=== PATIENT | male | born 1940 | race Caucasian/White ===

== ENCOUNTER 2019-12-14 07:39 | Outpatient (CLI) | payer MEDICARE, SELFPAY ==
--- NOTE | ~2019-12-14 | NM_ITS ---
EXAMINATION: NM vinayak stress w perfusion DATE: 12/14/2019 10:26 INDICATION: Other chest pain. TECHNIQUE: Rest images were obtained following intravenous administration of 10.6 mCi Tc99m tetrofosm in (Myoview). The patient was infused intravenously with Lexiscan (regadenoson). Then, 31.6 mCi Tc99m tetrofosmin (Myoview) was administered intravenously, and stress images were obtained. Data was micah nstructed into short axis and horizontal and vertical long axis SPECT images. Gated SPECT images were also obtained. COMPARISON: Myocardial perfusion imaging 03/04/2019 FINDINGS: There is no definite reversible or fixed perfusion abnormality to suggest ischemia or infar ction. There is no segmental wall motion abnormality. Left ventricular ejection fraction measures 6 5%. IMPRESSION: 1. No definite ischemia or infarct. 2. Normal left ventricular ejection fraction measuring 65%. Reviewed, dictated and finalized at location A. AND DRUG RESEARCH SCIENTIST
--- NOTE | 2019-12-14 07:47 | EST_ITS ---
Patient Info Name: Augusto Conley Age: 79 years : 1940 Gender: Male Ht: 68 in Wt: 200 lbs BSA: 2.11 m2 HR: 74 bpm BP: 181 / 84 mmHg Technical Quality: Good Exam Date: 12/14/2019 8:54 AM Exam Location: [facility] [place] Stress Patient Status: Outpatient Admit Date: 12/14/2019 Staff Ordering Physician: Nae Keys Attending Provider: Nae Keys Exercise Technologist: Sanchez Bustamante RDCS, RT Exercise Physician: Benito Salguero DO Exam Type: CA stress vinayak w NM Study Info A regadenoson stress test was performed. Summary 1. 1. Negative lexiscan stress test for ischemic ST changes by ECG criteria. 2. 2. Baseline hypertension. 3. 3. Nuclear scan to follow and will be reported separately. Please correlate with it. 4. 4. Patient informed of the above results. Protocol: Lexiscan Stress ECG Details Stage: REST Duration (min): 0 min : 11 sec HR (bpm): 79 SBP (mmHg): --- DBP (mmHg): --- Stage: REST Duration (min): 14 min : 29 sec HR (bpm): 73 SBP (mmHg): 181 DBP (mmHg): 84 Stage: STAGE 1 Duration (min): 1 min : 0 sec HR (bpm): 100 SBP (mmHg): 181 DBP (mmHg): 84 Stage: RECOVERY Duration (min): 1 min : 0 sec HR (bpm): 99 SBP (mmHg): 189 DBP (mmHg): 90 Stage: RECOVERY Duration (min): 2 min : 0 sec HR (bpm): 89 SBP (mmHg): 189 DBP (mmHg): 90 Stage: RECOVERY Duration (min): 3 min : 0 sec HR (bpm): 88 SBP (mmHg): 161 DBP (mmHg): 86 Stage: RECOVERY Duration (min): 3 min : 12 sec HR (bpm): 85 SBP (mmHg): 161 DBP (mmHg): 86 Rest HR: 73 bpm Peak HR: 106 bpm Rest Sys BP: 181 mmHg Peak Sys BP: 189 mmHg Max Pred HR: 139 bpm % Max Pred HR: 76 % Target HR: 118 bpm Max RPP: 20,034 bpm*mmHg Termination Reason: Completed protocol Cardiac Symptoms: Shortness of breath Total Time: 1 min : 0 sec Rest White BP: 84 mmHg Peak White BP: 90 mmHg Total Dose: 0.4 mg Resting ECG Sinus rhythm. Stress ECG No ST changes. Arrhythmias None. Report Signatures
== END 2019-12-14 07:40 | disposition home or self-care (01) ==
LOC: ANHCARD 07:41
PROVIDERS: PCP Internal Medicine; Visit Provider Nurse Practitioner
DX: R07.89 Other chest pain (principal)
CPT/HCPCS: 78452; 93017; A9502; J2785

== ENCOUNTER 2020-05-15 19:37 | Emergency (ER) | payer MEDICARE, SELFPAY ==
[2020-05-15] VITALS (12 sets, daily range): BP systolic 166–268; BP diastolic 87–108; PULSE 85–115; RESP 15–30; TEMP 36.4–37.2; O2SAT 94–100
--- NOTE | ~2020-05-15 | XR_ITS ---
EXAMINATION: XR shoulder LT min 2V INDICATION: Left shoulder dislocation TECHNIQUE: Three views of the left shoulder are obtained. COMPARISON: 10/13/2014 FINDINGS: There are changes of interval left total shoulder arthroplasty. There is acute anterior dis location of the humeral component relative to the glenoid. No fracture is identified. There is modera te to severe osteoarthritis of the acromioclavicular joint.. IMPRESSION: 1. 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 Reviewed, dictated and finalized at location A. IMPRESSION: 1. 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
--- NOTE | ~2020-05-15 | XR_ITS ---
EXAMINATION: XR shoulder LT min 2V INDICATION: Left shoulder post reduction TECHNIQUE: Two views of the left shoulder are obtained. COMPARISON: 2007 hours FINDINGS: There is persistent shoulder dislocation with the humeral component residing cranial to the glenoid component. No fracture is identified. IMPRESSION: 1. Persistent shoulder dislocation. Reviewed, dictated and finalized at location A.
--- NOTE | 2020-05-15 19:55 | ED.UPPEXIN ---
HPI - Extremity Injury (Upper) General Chief Complaint: Extremity Injury, Upper Stated Complaint: L shoulder pain Time Seen by Provider: 05/15/20 19:47 History of Present Illness HPI narrative: Patient presents with his for left shoulder pain. He dislocated it a half an hour prior to presentation. He tried to put it back in himself and was unable to. He has had surgery on it before. Last surgery was 2015. He describes the pain is 8 out of 10. He has not been sick in the last couple weeks. He does not smoke drink or do drugs. He was oxygen at home 2 L. complaint: injury to: left Onset (ago): minute(s) Other Extremity Injury: Left: shoulder Place: home Severity: severe Severity scale (1-10): 8 Relieving factors: none Exacerbating factors: movement of extremity Associated symptoms: denies other symptoms Related Data Home Medications Medication Instructions Recorded Confirmed cholecalciferol (vitamin D3) 25 1,000 unit PO DAILY 12/06/19 12/06/19 mcg (1,000 unit) tablet finasteride 5 mg tablet 5 mg PO DAILY 12/06/19 12/06/19 niacin 500 mg tablet 500 mg PO DAILY 12/06/19 12/06/19 omega-3 fatty acids 1,000 mg 1,000 mg PO DAILY 12/06/19 12/06/19 capsule aspirin 81 mg tablet,delayed 81 mg PO DAILY 04/23/20 release Allergies Allergy/AdvReac Type Severity Reaction Status Date / Time cefuroxime Allergy Unknown Unknown Verified 02/02/20 09:49 hydromorphone Allergy Unknown Unknown Verified 02/02/20 09:49 hydroxyprogesterone Allergy Unknown Unknown Verified 02/02/20 09:49 levofloxacin Allergy Unknown Rash Verified 02/02/20 09:49 lisinopril Allergy Unknown Unknown Verified 02/02/20 09:49 meperidine Allergy Unknown Unknown Verified 02/02/20 09:49 Review of Systems Review of Systems: Narrative: CONSTITUTIONAL: Denies fever, chills, or sweats. EYES: Denies visual changes, redness, or discharge. ENT: Denies rhinorrhea, congestion, sore throat, or otalgia. CARDIOVASCULAR: Denies chest pain, palpitations, or edema. RESPIRATORY: Denies cough or dyspnea. GASTROINTESTINAL: Denies abdominal pain, nausea, vomiting, or diarrhea. GENITOURINARY: Denies dysuria or hematuria. SKIN: Denies rash or itching. MUSCULOSKELETAL: Denies back pain, but has left shoulder pain. NEUROLOGIC: Denies headache, numbness, or weakness. PSYCHIATRIC: Denies anxiety or depression. All systems reviewed & are unremarkable except as noted in HPI and below PMFSH Past Medical History Medical History Chronic hypoxemic respiratory failure Chronic obstructive pulmonary disease Essential (primary) hypertension ILD (interstitial lung disease) Surgical History Surgical History History of cancer surgery History of foot surgery History of shoulder surgery History of surgery on arm Social History Social History Smoking packs per day: 5 Smoking cigarettes per day: 100.0 Years smoked: 56 Smoking pack-years: 280.00 Smoking status: Former smoker Tobacco type: cigarettes Second hand tobacco smoke exposure: No Smoking end date: 11/16/06 Alcohol intake: never Gender identity (if verbalized by the patient): Male Exam Narrative: Exam Narrative: GENERAL: Well-appearing, well-nourished, and in no acute distress. HEAD: Normocephalic, atraumatic. EYES: PERRLA and EOMI. ENT: Nares clear, no rhinorrhea or epistaxis. Mucous membranes moist. NECK: Supple. CHEST: Clear to auscultation. No respiratory distress. HEART: Regular rate and rhythm. No murmur heard. Normal peripheral pulses. ABDOMEN: Soft, nontender, nondistended, normal active bowel sounds. EXTREMITIES: No edema. Left shoulder with deformity, and well-healed scar. Range of motion severely limited. SKIN: Warm, dry, no rash. NEURO: No focal deficits. Alert and oriented x3. PSYCH: Normal mood and affect. Course Reevaluati
--- NOTE | 2020-05-15 20:32 | PC.NURSE ---
10 mg of etomidate given at this time. per ed lamar orders.
--- NOTE | 2020-05-15 20:35 | PC.NURSE ---
pt vomiting at this time. 4 mg of zofran ordered per edp
[2020-05-15] MEDS: ONDANSETRON INJ 4 MG/2 ML VIAL IV PUSH ×2 (20:41→22:08)
[2020-05-15] MEDS: ETOMIDATE 20 MG/10 ML AMPUL IV PUSH (20:41)
[2020-05-15] MEDS: MORPHINE SULFATE 2 MG/ML INJ IV PUSH (21:20)
[2020-05-15] MEDS: METOCLOPRAMIDE HCL INJ 10 MG/2 ML VIAL IV PUSH (21:20)
[2020-05-15 22:49] LABS: Glucose Point of Care 189 (65-105)
--- NOTE | 2020-05-23 06:42 | PC.NURSE ---
LATE ENTRY This note is being entered to document information to the patient's record. The following information was omitted on 05/15, 10 mg of etomidate given at 2020.
== END 2020-05-15 23:01 | disposition short-term general hospital (02) ==
PROVIDERS: Emergency Provider Emergency Medicine; PCP Internal Medicine
DX: S43.005A Unspecified dislocation of left shoulder joint, initial encounter (principal); R11.2 Nausea with vomiting, unspecified; Z87.891 Personal history of nicotine dependence; J44.9 Chronic obstructive pulmonary disease, unspecified; I10 Essential (primary) hypertension; X58.XXXA Exposure to other specified factors, initial encounter
CPT/HCPCS: 23650; 73030; 96374; 99285; J2270; J2405; J2765

== ENCOUNTER 2020-06-07 10:38 | Outpatient (CLI) | payer MEDICARE, SELFPAY ==
--- NOTE | ~2020-06-07 | US_ITS ---
EXAMINATION: US renal BI EXAM DATE: 06/07/2020 11:16 INDICATION: History chronic kidney disease. TECHNIQUE: Multiple grayscale and Doppler images of the kidneys were obtained (by a technologist who performed the scan) and subsequently reviewed. Comparison is made to prior examination from 06/18/2011. FINDINGS: Right kidney: There is normal contour and echogenicity. It measures 11.3 x 6.2 x 5.6 centimeters. Th ere is bilobulated cystic region superior pole right kidney, region measuring 4.7 x 2.8 x 4.4 cm. Thi s was present in 2010 and is likely a cyst. There is no hydronephrosis. Left kidney: There is normal contour and echogenicity. It measures 10.1 x 5.5 x 5.8 centimeters. Th ere are no focal renal lesions identified. There is no hydronephrosis. Bladder unremarkable. IMPRESSION: 1. Right renal lesion most likely cyst. Reviewed, dictated and finalized at location A.
== END 2020-06-07 10:39 | disposition home or self-care (01) ==
LOC: ANHIMG 10:39
PROVIDERS: PCP Internal Medicine; Visit Provider Internal Medicine Nephrology
DX: I12.9 Hypertensive chronic kidney disease with stage 1 through stage 4 chronic kidney disease, or unspecified chronic kidney disease (principal); N18.3 Chronic kidney disease, stage 3 (moderate); E11.29 Type 2 diabetes mellitus with other diabetic kidney complication; N28.1 Cyst of kidney, acquired
CPT/HCPCS: 76775

== ENCOUNTER 2020-10-04 16:50 | Emergency (ER) | payer MEDICARE, SELFPAY ==
[2020-10-04 17:01] VITALS: BP 184/100; PULSE 88; RESP 20; TEMP 36.9; O2SAT 97
--- NOTE | 2020-10-04 17:06 | ED.URI ---
HPI - URI/Sore Throat General Chief Complaint: Upper Respiratory Infection Stated Complaint: upper respiratory infection Source: patient Mode of arrival: ambulatory Limitations: no limitations History of Present Illness HPI Narrative: Patient is an 80-year-old male who presents with complaining of flulike symptoms x1 week. Patient reports receiving flu vaccine last month. He reports body aches, cough, congestion. Patient has multiple comorbidities and is on home O2. Patient reports a temp of 103 approximately 2 days ago. He denies known Covid exposure. He has been taking DayQuil and NyQuil daily with limited relief. MD elicited complaint: cough Related Data Home Medications Medication Instructions Recorded Confirmed cholecalciferol (vitamin D3) 25 1,000 unit PO DAILY 12/06/19 10/04/20 mcg (1,000 unit) tablet niacin 500 mg tablet 500 mg PO DAILY 12/06/19 10/04/20 omega-3 fatty acids 1,000 mg 1,000 mg PO DAILY 12/06/19 10/04/20 capsule aspirin 81 mg tablet,delayed 81 mg PO DAILY 04/23/20 10/04/20 release insulin syringe-needle U-100 1/2 #90 each 06/01/20 06/01/20 mL 31 gauge x 15/64 tramadol 50 mg tablet 50 mg PO DAILY PRN tablet 06/04/20 06/04/20 Allergies Allergy/AdvReac Type Severity Reaction Status Date / Time cefuroxime Allergy Unknown Unknown Verified 10/04/20 17:13 hydromorphone Allergy Unknown Unknown Verified 10/04/20 17:13 hydroxyprogesterone Allergy Unknown Unknown Verified 10/04/20 17:13 levofloxacin Allergy Unknown Rash Verified 10/04/20 17:13 lisinopril Allergy Unknown Unknown Verified 10/04/20 17:13 meperidine Allergy Unknown Unknown Verified 10/04/20 17:13 Review of Systems Review of Systems: Narrative: CONSTITUTIONAL: Reports intermittent fever. EYES: Denies visual changes, redness, or discharge. ENT: Denies rhinorrhea, sore throat, or otalgia. Congestion CARDIOVASCULAR: Denies chest pain, palpitations, or edema. RESPIRATORY: Reports cough and dyspnea. On home O2 GASTROINTESTINAL: Denies abdominal pain, nausea, vomiting, or diarrhea. GENITOURINARY: Denies dysuria or hematuria. SKIN: Denies rash or itching. MUSCULOSKELETAL: Denies back pain, joint pain, reports generalized myalgias NEUROLOGIC: Denies headache, numbness, dizziness, or weakness. PSYCHIATRIC: Denies anxiety or depression. [facility] Past Medical History Medical History (Updated 10/04/20 @ 17:42 by MORGAN Harvey) Chronic hypoxemic respiratory failure Chronic obstructive pulmonary disease Essential (primary) hypertension ILD (interstitial lung disease) Surgical History Surgical History History of cancer surgery History of foot surgery History of shoulder surgery History of surgery on arm Family History Family History Sibling Family history of arthritis Family history of Alzheimer's disease Father Cerebrovascular accident Social History Social History Smoking packs per day: 5 Smoking cigarettes per day: 100.0 Years smoked: 56 Smoking pack-years: 280.00 Smoking status: Former smoker Tobacco type: cigarettes Second hand tobacco smoke exposure: No Smoking end date: 11/16/06 Alcohol intake: never Gender identity (if verbalized by the patient): Male Exam Narrative: Exam Narrative: GENERAL: Well-appearing, well-nourished, and in no acute distress. HEAD: Normocephalic, atraumatic. EYES: No redness or drainage. ENT: Mucous membranes pink and moist. CHEST: No respiratory distress. Lung sounds clear but slightly diminished bilaterally. HEART: Regular rate and rhythm. EXTREMITIES: Normal range of motion. SKIN: Warm, dry, no rash. NEURO: No focal deficits. Alert and oriented x3. Gait steady. PSYCH: Normal affect. No signs of depression or anxiety. Course Vital Signs Vital signs: Vital Signs Temp
== END 2020-10-04 18:00 | disposition home or self-care (01) ==
PROVIDERS: Emergency Provider Nurse Practitioner; PCP Internal Medicine
DX: J06.9 Acute upper respiratory infection, unspecified (principal); U07.1 COVID-19; F17.210 Nicotine dependence, cigarettes, uncomplicated; J44.9 Chronic obstructive pulmonary disease, unspecified; I10 Essential (primary) hypertension
CPT/HCPCS: 87804; 99202; G0463

== ENCOUNTER 2020-10-05 06:54 | Outpatient (NON) | payer MEDICARE, SELFPAY ==
[2020-10-06 06:47] LABS: SARS-CoV-2 RNA PCR Positive
== END 2020-10-05 06:55 ==
PROVIDERS: PCP Internal Medicine; Visit Provider Nurse Practitioner
DX: U07.1 COVID-19 (principal)
CPT/HCPCS: 87635; C9803; U0003

== ENCOUNTER 2021-01-23 08:32 | Outpatient (CLI) | payer MEDICARE, SELFPAY | END 2021-01-23 08:33 | disposition home or self-care (01) | LOC: ANHCOVIDVC 08:32 | PROVIDERS: PCP Internal Medicine | DX: Z23 Encounter for immunization (principal) | CPT/HCPCS: 0001A; 91300 ==

== ENCOUNTER 2021-02-13 08:23 | Outpatient (CLI) | payer MEDICARE, SELFPAY | END 2021-02-13 08:24 | LOC: ANHCOVIDVC 08:23 | PROVIDERS: PCP Internal Medicine | DX: Z23 Encounter for immunization (principal) | CPT/HCPCS: 0002A; 91300 ==

== ENCOUNTER 2021-05-05 09:15 | Emergency (ER) | payer MEDICARE, SELFPAY ==
--- NOTE | ~2021-05-05 | XR_ITS ---
EXAMINATION: XR hand LT min 3V INDICATION: Left hand pain and swelling TECHNIQUE: Three views of the left hand are obtained. COMPARISON: None available FINDINGS: There is advanced osteoarthritis and apparent surgical change of the carpals. Moderate oste oarthritis is noted in multiple interphalangeal joints. No acute osseous findings are evident. The so ft tissues are unremarkable. IMPRESSION: 1. No acute osseous abnormality. Reviewed, dictated and finalized at location A.
[2021-05-05 09:23] VITALS: BP 164/93; PULSE 95; RESP 20; TEMP 37.1; O2SAT 98
[2021-05-05 10:46] LABS: Basophils Percent Auto 0.4 % (0.2-1.2); Eosinophils Absolute Auto 0.1 K/mm3 (0-0.3); Eosinophils Percent Auto 1.1 % (0-4.4); Hematocrit 33.5 % (42.0-52.0); Hemoglobin 10.4 g/dL (14.0-18.0); Immature Granulocyte Absolute 0.04 K/mm3 (0.00-0.031); Immature Granulocyte Percent A 0.4 % (0-0.5); Lymphocytes Absolute Auto 0.69 K/mm3 (0.9-3.2); Lymphocytes Percent Auto 6.7 % (18.3-44.2); Mean Corpuscular Hemoglobin 27.1 pg (26-34); Mean Corpuscular Volume 87.2 fl (80-100); Mean Platelet Volume 10.2 fl (7.4-10.4); Monocytes Absolute Auto 0.8 K/mm3 (0.1-0.6); Monocytes Percent Auto 7.7 % (2.6-8.5); Neutrophils Absolute Auto 8.6 K/mm3 (1.3-6.7); Neutrophils Percent Auto 83.7 % (45.5-73.1); Platelet Count Result 222 k/mm3 (150-375); Red Blood Count 3.84 M/mm3 (4.6-6.20); Red Cell Distribution Width 15.6 % (11.5-14.5); White Blood Count 10.3 K/mm3 (4.5-10.0)
--- NOTE | 2021-05-05 10:47 | ED.EXTPRO ---
HPI - Extremity Problem General Chief complaint: Extremity Problem,Nontraumatic Stated complaint: left hand pain Time Seen by Provider: 05/05/21 10:19 Source: patient Mode of arrival: ambulatory Limitations: no limitations History of Present Illness HPI Narrative: This is an 80-year-old male that presents to the emergency department for left wrist pain since yesterday. Reports redness and swelling to the area. No recent injury or trauma. Is unsure if he has had surgery on this wrist before. Pain makes him unable to move the wrist. He has not taken anything for pain. Denies fever. Related Data Home Medications Medication Instructions Recorded Confirmed niacin 500 mg tablet 500 mg PO DAILY 12/06/19 04/30/21 omega-3 fatty acids 1,000 mg 1,000 mg PO DAILY 12/06/19 04/30/21 capsule aspirin 81 mg tablet,delayed 81 mg PO DAILY 04/23/20 04/30/21 release insulin syringe-needle U-100 1/2 #90 each 06/01/20 04/30/21 mL 31 gauge x 15/64 ascorbic acid (vitamin C) 500 mg 500 mg PO DAILY 02/22/21 04/30/21 tablet,extended release cholecalciferol (vitamin D3) 25 25 mcg PO DAILY 02/22/21 04/30/21 mcg (1,000 unit) capsule budesonide 0.5 mg/2 mL suspension 0.5 mg INHALATION BID ml 04/09/21 04/30/21 for nebulization insulin glargine 100 unit/mL See Rx Instructions SUB-Q QPM ml 04/30/21 04/30/21 subcutaneous solution Allergies Allergy/AdvReac Type Severity Reaction Status Date / Time cefuroxime Allergy Unknown Unknown Verified 05/05/21 09:29 hydromorphone Allergy Unknown Unknown Verified 05/05/21 09:29 hydroxyprogesterone Allergy Unknown Unknown Verified 05/05/21 09:29 levofloxacin Allergy Unknown Rash Verified 05/05/21 09:29 lisinopril Allergy Unknown Unknown Verified 05/05/21 09:29 meperidine Allergy Unknown Unknown Verified 05/05/21 09:29 Review of Systems Review of Systems: Narrative: CONSTITUTIONAL: Denies fever SKIN: Reports redness MUSCULOSKELETAL: Reports joint pain, and myalgia. NEUROLOGIC: Denies numbness All systems reviewed & are unremarkable except as noted in HPI and below PMFSH Past Medical History Medical History (Updated 05/05/21 @ 12:12 by Alem Gonzalez PA-C) Chronic hypoxemic respiratory failure Chronic obstructive pulmonary disease COVID-19 Essential (primary) hypertension History of CVA (cerebrovascular accident) ILD (interstitial lung disease) longterm (current) use of insulin Malignant neoplasm of upper lobe of right lung Malignant neoplasm of urinary bladder Mixed hyperlipidemia Oxygen dependent Proteinuria Skin cancer of scalp Type 2 diabetes mellitus with hyperglycemia Surgical History Surgical History History of cancer surgery History of foot surgery History of shoulder surgery History of surgery on arm Family History Family History Sibling Family history of arthritis Family history of Alzheimer's disease Father Cerebrovascular accident Social History Social History (Updated 04/30/21 @ 08:45 by Yaneli Ross CMA) Smoking packs per day: 5 Smoking cigarettes per day: 100.0 Years smoked: 56 Smoking pack-years: 280.00 Smoking status: Former smoker Tobacco type: cigarettes Second hand tobacco smoke exposure: No Smoking end date: 11/16/06 Alcohol intake: never Substance use: never Substance use type: does not use Additional living arrangements comments: LIVES WITH Gender identity (if verbalized by the patient): Male Exam Narrative: Exam Narrative: GENERAL: Elderly, well-nourished, and in no acute distress. HEAD: Normocephalic, atraumatic. EYES: EOMI. CHEST: Airway patent HEART: Regular rate and rhythm. No murmur heard. Normal peripheral pulses. EXTREMITIES: Markedly decreased active range of motion in the left wrist due to pain. Mild to moderate edema and erythema of the left wrist radial side, patie
[2021-05-05] MEDS: ACETAMINOPHEN 500 MG TABLET 1000 MG PO (10:52)
[2021-05-05 11:00] LABS: Anion Gap 9 mmol/L (8-16); Blood Urea Nitrogen 32 mg/dL (9-20); CRP 2.5 mg/dL (<1.0); Calcium 9.6 mg/dL (8.4-10.2); Carbon Dioxide 26 mmol/L (22-30); Chloride 105 mmol/L (98-107); Estimated CRCL calculation 21 ml/min; Estimated Glomerular Filt Rate 26; Glucose 174 mg/dL (75-110); Potassium 4.4 mmol/L (3.4-5.0); Sodium 140 mmol/L (137-145); Uric Acid 7.8 mg/dL (3.5-8.5)
[2021-05-05 11:15] LABS: Erythrocyte Sedimentation Rate > 140 mm/hr (0-20)
[2021-05-05 11:44] VITALS: BP 144/99; PULSE 90; RESP 20; O2SAT 100
[2021-05-05] MEDS: COLCHICINE 0.6 MG TABLET 1.2 MG PO (12:09)
[2021-05-05 12:11] VITALS: BP 151/74; PULSE 97; RESP 20; O2SAT 100
[2021-05-05 12:23] VITALS: BP 151/74; PULSE 93; RESP 20; O2SAT 99
== END 2021-05-05 12:35 | disposition home or self-care (01) ==
PROVIDERS: Physician Assistant; Emergency Provider Emergency Medicine; PCP Internal Medicine
DX: M10.9 Gout, unspecified (principal); E11.9 Type 2 diabetes mellitus without complications; Z86.16 Personal history of COVID-19; J44.9 Chronic obstructive pulmonary disease, unspecified; J96.11 Chronic respiratory failure with hypoxia; I10 Essential (primary) hypertension; J84.9 Interstitial pulmonary disease, unspecified; E78.2 Mixed hyperlipidemia; Z99.81 Dependence on supplemental oxygen; Z85.118 Personal history of other malignant neoplasm of bronchus and lung; Z85.51 Personal history of malignant neoplasm of bladder; Z85.828 Personal history of other malignant neoplasm of skin; Z79.82 Long term (current) use of aspirin; Z79.4 Long term (current) use of insulin; Z87.891 Personal history of nicotine dependence
CPT/HCPCS: 36415; 73130; 80048; 84550; 85025; 85652; 86140; 99283; A9270